=== PATIENT | male | born 1980 | race Caucasian/White ===

== ENCOUNTER 2017-11-06 20:13 | Emergency (ER) | payer SELFPAY ==
[2017-11-06 20:18] VITALS: O2SAT 99
[2017-11-06] MEDS ORDERED: Naproxen 500 MG TAB PO STA (20:31)
[2017-11-06] MEDS ORDERED: Naproxen 500 MG TAB PO ONE (20:35)
--- NOTE | 2017-11-06 20:35 | ED PDOC ---
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 Denies specific injury. No numbness, weakness , tingling, or loss of function. Denies suicidal, homicidal, or any psychiatric complaints. Past Medical History Reviewed: Historical Data, Nursing Documentation, Vital Signs Vital Signs: Last Vital Signs Temp 98.5 F 11/06/17 20:16 Pulse 66 11/06/17 20:16 Resp 16 11/06/17 20:16 BP 137/77 11/06/17 20:16 Pulse Ox 99 11/06/17 20:16 - Medical History PMH: No Chronic Diseases - Family History Family History: States: Unknown Family Hx - Immunization History Hx Tetanus Toxoid Vaccination: Yes Hx Influenza Vaccination: No Hx Pneumococcal Vaccination: No - Home Medications Home Medications: Ambulatory Orders Medication Instructions Recorded Ondansetron ODT [Zofran ODT] 1 odt PO BID PRN #6 odt 04/23/16 Lidocaine 1 each TP DAILY #10 adh..patch 11/06/17 Naproxen [Naprosyn] 500 mg PO BID #30 tablet 11/06/17 - Allergies Allergies/Adverse Reactions: Allergies Allergy/AdvReac Type Severity Reaction Status Date / Time No Known Allergies Allergy Verified 04/23/16 09:15 Review of Systems ROS Statement: Except As Marked, All Systems Reviewed And Found Negative Musculoskeletal: Positive for: Neck Pain, Arm Pain, Back Pain Physical Exam - Reviewed Nursing Documentation Reviewed: Yes Vital Signs Reviewed: Yes - Physical Exam Appears: Positive for: Well, Non-toxic, No Acute Distress Head Exam: Positive for: ATRAUMATIC, NORMAL INSPECTION, NORMOCEPHALIC Skin: Positive for: Normal Color, Warm, DRY Eye Exam: Positive for: EOMI, Normal appearance, PERRL Neck: Positive for: Painless ROM, Supple. Negative for: Normal (TTP of insertion site of trapezius) Back: Positive for: Muscle Spasm (L upper back tenderness, spasm, no vertebral tenderness; no swelling/deformity). Negative for: Vertebral Tenderness Extremity: Negative for: Normal ROM (near full ROM of LUE, tenderness to posterior deltoid, 2+ distal pulses, NV intact) - ECG O2 Sat by Pulse Oximetry: 99 Pulse Ox Interpretation: Normal Medical Decision Making Medical Decision Making: Patient brought in by police for eval of MSK pain. Patient has tenderness of trapezius muscle insertion sites. Not concerned for meningitis, neurological issue, or other acute pathology. Advised NSAIDs and followup with PMD. Disposition - Clinical Impression Clinical Impression: Trapezius muscle spasm - Patient ED Disposition Is Patient to be Admitted: No - Disposition Referrals: [facility] [Outside] Disposition: Discharged/Transfer to Law Enforcement Disposition Time: 20:38 Condition: STABLE Additional Instructions: Patient is medically and psychiatrically cleared for incarceration. Prescriptions: Lidocaine 1 each TP DAILY #10 adh..patch Naproxen [Naprosyn] 500 mg PO BID #30 tablet Instructions: Muscle Spasms (DC)
[2017-11-07 03:44] VITALS: BP 125/74; PULSE 76; RESP 18; TEMP 98.2
== END 2017-11-06 21:00 | disposition home or self-care (01) ==
LOC: H.ER 20:13
DX: M62.838 Other muscle spasm (principal)